=== PATIENT | male | born 1955 | race Caucasian/White ===

== ENCOUNTER 2024-10-02 14:28 | Emergency (ER) | payer OTHER ==
[~2024-10-02] VITALS: Ht 172.7 cm; Wt 80.0 kg
[2024-10-02 14:31] VITALS: O2SAT 98
[2024-10-02] MEDS: DIPHENHYDRAMINE 50MG/ML VIAL IM STA (15:09)
[2024-10-02] MEDS: OLANZAPINE 10 MG/VIAL IM STA (15:09)
[2024-10-02] MEDS: HALOPERIDOL LACTATE 5MG/ML VIAL IM STA (15:24)
[2024-10-02] MEDS: LORAZEPAM 2MG/ML INJ IM STA (15:24)
[2024-10-02 16:02] LABS: CLARITY URINE CLEAR (CLEAR); COLOR URINE YELLOW (YELLOW); GLUCOSE URINE 3+ (NEGATIVE); KETONES URINE 1+ (NEGATIVE); LEUKOCYTE ESTERASE URINE NEGATIVE (NEGATIVE); NITRITE URINE NEGATIVE (NEGATIVE); OCCULT BLOOD URINE 1+ (NEGATIVE); PH URINE 5.5 (4.5-8.0); PROTEIN URINE 1+ (NEGATIVE); SPECIFIC GRAVITY URINE 1.019 (1.005-1.030); UROBILINOGEN URINE 0.2 E.U./dL (0.2-1.0)
[2024-10-02 16:11] LABS: *AMPHETAMINES SCREEN URINE NEGATIVE (NEGATIVE); *BARBITURATES SCREEN URINE NEGATIVE (NEGATIVE); *BENZODIAZEPINES SCREEN URINE NEGATIVE (NEGATIVE); *COCAINE SCREEN URINE NEGATIVE (NEGATIVE); CANNABINOID URINE SCREEN NEGATIVE (NEGATIVE); ECSTASY MDMA SCREEN URINE NEGATIVE (NEGATIVE); METHADONE URINE SCREEN NEGATIVE (NEGATIVE); OPIATES URINE SCREEN NEGATIVE (NEGATIVE); PHENCYCLIDINE URINE SCREEN NEGATIVE (NEGATIVE)
[2024-10-02 16:34] LABS: HYALINE CASTS URINE 0-5 /lpf; SQUAMOUS EPITHELIAL CELL URINE FEW /lpf (RARE/1+); WBC URINE 0-2 /hpf (0-2)
[2024-10-02 16:35] LABS: BACTERIA URINE NONE SEEN
[2024-10-02 16:47] LABS: BASOPHILS % 0.5 % (0.0-2.0); EOSINOPHILS % 0.3 % (0.0-5.0); HEMATOCRIT. 47.5 % (42.0-52.0); HEMOGLOBIN. 15.5 g/dL (14.0-18.0); LYMPHOCYTES % 19.5 % (20.0-50.0); MEAN CORPUSCULAR HGB CONC 32.7 g/dL (31.0-37.0); MEAN CORPUSCULAR VOLUME 94.6 fL (80.0-94.0); MEAN PLATELET VOLUME 8.4 fl (7.4-10.4); MONOCYTES % 9.1 % (2.0-8.0); NEUTROPHILS % 70.6 % (40.0-76.0); PLATELET 346 x1000/uL (130-400); RED BLOOD CELL COUNT 5.02 mill/uL (4.7-6.1); RED CELL DISTRIBUTION WIDTH 14.6 % (11.6-14.6); WHITE BLOOD COUNT 12.9 x1000/uL (4.5-11.0)
[2024-10-02 16:52] LABS: CHLORIDE 105 mEq/L (98-107); POTASSIUM 3.9 mEq/L (3.5-5.1); SODIUM 139 mEq/L (136-145)
[2024-10-02 16:53] LABS: CARBON DIOXIDE 21 mEq/L (21-32)
[2024-10-02 16:54] LABS: CALCIUM 9.6 mg/dL (8.7-10.4)
[2024-10-02 16:58] LABS: CREATININE 2.7 mg/dL (0.6-1.3)
[2024-10-02 16:59] LABS: GLUCOSE 149 mg/dL (70-105); UREA NITROGEN BLOOD 31 mg/dL (9-23)
[2024-10-02 17:06] LABS: ETHANOL BLOOD < 10 mg/dL (<10)
[2024-10-02] MEDS: LORAZEPAM 2MG/ML INJ IM NR (18:46)
[2024-10-02] MEDS: HALOPERIDOL LACTATE 5MG/ML VIAL IM NR (18:46)
[2024-10-03 02:22] LABS: POTASSIUM 3.7 mEq/L (3.5-5.1)
[2024-10-03 02:24] LABS: CALCIUM 9.4 mg/dL (8.7-10.4)
[2024-10-03 02:28] LABS: CREATININE 2.6 mg/dL (0.6-1.3)
[2024-10-03] MEDS: SODIUM CHLORIDE 0.9% 1,000 ML IV ONE (02:53)
[2024-10-03 07:11] LABS: POTASSIUM 4.2 mEq/L (3.5-5.1)
[2024-10-03 07:17] LABS: CREATININE 2.3 mg/dL (0.6-1.3)
[2024-10-03 21:00] VITALS: BP 124/73; PULSE 82; RESP 16; TEMP 36.7; O2SAT 100
== END 2024-10-03 21:32 ==
LOC: ER 14:28
DX: F23 Brief psychotic disorder (principal); E11.9 Type 2 diabetes mellitus without complications; F25.9 Schizoaffective disorder, unspecified; F31.9 Bipolar disorder, unspecified; I10 Essential (primary) hypertension; Z20.822 Contact with and (suspected) exposure to COVID-19; Z79.899 Other long term (current) drug therapy
CPT/HCPCS: 80305; 80048 ×2; 81003; 80320; 85025; 36415 ×2; 96372; 99285; 82962; 87426; J3490; J1200; J1630; J2060; J7030; G0480